=== PATIENT | female | born 1945 | race Caucasian/White ===

== ENCOUNTER 2016-02-26 09:03 | Emergency (ER) | payer OTHER ==
[2016-02-26 09:21] VITALS: BP 131/78; PULSE 73; RESP 20; TEMP 98.6; O2SAT 97
--- NOTE | 2016-02-26 09:57 | UCPHY ---
H & P Time Seen by Provider: 02/26/16 09:46 Patient Type: New HPI/ROS: This patient reports a new mole on her left biceps region that she noticed last night. She has no pain at the area but is concerned about potential melanoma because she had a family member who of melanoma. ROS: She has no somatic complaints at this time other than the new mole. 5 point ROS is otherwise negative Smoking Status: Never smoked Physical Exam: Physical Exam Vital signs are normal. General: No acute distress Eyes: Pupils equal and react to light. Extraocular motions are intact. Lungs: No respiratory distress. Cardiac: Brisk capillary refill is intact throughout. Skin: Patient has multiple hyper pigmented nevi to bilateral upper extremities the mole that she points out is approximately 8 mm in diameter round and brown pigmentation to the anterior left biceps. There are no fluctuant lesions, no raised lesions, no petechia or purpura. Neuro: Alert and oriented x3 with no sensorimotor deficits. Initial differential diagnosis: Benign nevi, new mole, early melanoma Constitutional: Initial Vital Signs Temperature (C) 37 C 02/26/16 09:18 Heart Rate 73 02/26/16 09:18 Respiratory Rate 20 02/26/16 09:18 Blood Pressure 131/78 H 02/26/16 09:18 O2 Sat (%) 97 02/26/16 09:18 O2 Delivery Mode Room Air Allergies/Adverse Reactions: Penicillins Allergy (Verified 02/26/16 09:17) NAUSEA Sulfa (Sulfonamide Antibiotics) Allergy (Verified 02/26/16 09:17) FATIGUE Home Medications: Medication Instructions Recorded Atorvastatin Calcium [Lipitor 10 10 mg PO DAILY 12/23/15 mg (*)] Hydrochlorothiazide [HCTZ (*)] 25 mg PO DAILY 12/23/15 Lisinopril [Zestril 30 mg] 30 mg PO DAILY 12/23/15 Multivitamins [Multivitamin (*)] 1 each PO DAILY 12/23/15 Omeprazole 20 mg PO DAILY 12/23/15 Piloc[place]ine HCl [Salagen 5mg (*)] 10 mg PO BID 12/23/15 Aspirin [Aspirin 81mg (*)] 81 mg PO DAILY #0 tab.chew 12/24/15 MDM/Departure - MDM ED Course/Re-evaluation: I encouraged the patient to have a close follow up with Dr. Naranjo-ed tech for further evaluation - Depart Disposition: Home, Routine, Self-Care Clinical Impression: Change in mole Condition: Good Instructions: Atypical Mole (ED) Additional Instructions: Diagnosis: Change in mole Plan: Call Dr. Naranjo-Dermatology to arrange follow-up appointment for further evaluation Referrals: Palma Cid MD [Primary Care Provider] - As per Instructions ANNY NARANJO [Medical Doctor] - As per Instructions - PQRS PQRS Measurement: 134: Depression screening and followup, PRIME MD-PHQ2 (12 years and older) Over the last 2 weeks, how often have you been bothered by any of the following problems? 1. Feeling down, depressed, or hopeless? 2. Little interest or pleasure in doing things? Patient answered no to both 1 and 2 130: Documentation of medications. Reviewed all patient medications, doses, route and frequency. 226: Do you smoke? [No.] 47: 65 and older: Advanced care planning. Patient designates surrogate decision maker as [Patient has advanced directive.] 51: 18 years old and older with diagnosis of COPD, spirometry performance. NA 52: 18 years old and older with COPD and symptoms of COPD or FEV1<60% predicted prescribed a B Agonist. NA
== END 2016-02-26 10:00 | disposition home or self-care (01) ==
LOC: CED 09:03
DX: R23.8 Other skin changes (principal)
CPT/HCPCS: G0463-PO

== ENCOUNTER → 2016-03-29 | Outpatient (CLI) | payer OTHER ==
--- NOTE | 2016-03-29 15:32 | DX ---
DEXA Bone Mineral Densitometry Clinical Indications: Postmenopausal, screening for osteoporosis Comparison: 09/29/2005 (outside exam) Technique: Bone Mineral Densitometry (BMD) by Dual Energy X-Ray Absorptiometry (DEXA) was performed utilizing the Lat49 scanner. The lumbar spine was evaluated in the AP projection. The bilat eral hips and forearm were evaluated in the AP projection. Vertebral fracture assessment was also pe rformed. AP Lumbar Spine: The L1, L2, L3 and L4 vertebral bodies were evaluated. BMD: 1.259 gm/cm2 T-score: 0.5 SD Z-score: 2.2 SD No significant change. AP Left Hip: Total BMD: 1.000 gm/cm2 T-score: -0.1 SD Z-score: 1.4 SD No significant change. AP Right Hip: Total BMD: 1.047 gm/cm2 T-score: 0.3 SD Z-score: 1.8 SD AP Left Forearm, 02/22: BMD: 0.898 gm/cm2 T-score: 0.3 SD Z-score: 2.1 SD Vertebral Fracture Assessment: No significant fracture deformity. Conclusion: Considering the lowest measured site, the patient is normal and at low risk for fracture. The ten year FRAX risk for any major osteoporotic fracture is 7.2% and for a hip fracture is 0.4%. Any bone loss in this patient is probably related to aging or estrogen deficiency. To prevent osteoporosis and to promote the patient's bone density, the following recommendations shou ld be considered: 1. Pursue a regular regimen of weightbearing and muscle strengthening exercises in order to reduce t he risk of falls and fractures (as tolerated by the patient's general medical condition). 2. Ensure that daily dietary calcium uptake is maximized. 3. Consider checking the serum vitamin D level. Ensure that intake of vitamin D is 800 IU per day (f or ages 71 and older). 4. Consider follow-up DEXA scan in 3-4 years to assess the rate of bone loss in this patient.
== END ==
LOC: FIMAGING 13:19
PROVIDERS: ATTEND Internal Medicine
DX: Z13.820 Encounter for screening for osteoporosis (principal); Z78.0 Asymptomatic menopausal state

== ENCOUNTER 2016-06-07 19:22 | Emergency (ER) | payer OTHER ==
--- NOTE | 2016-06-07 20:02 | CPEKG ---
Heart Rate: 106 RR Interval: 566 P-R Interval: 200 QRSD Interval: 88 QT Interval: 320 QTC Interval: 425 P [place]: 68 QRS [place]: 63 T Wave [place]: -62 EKG Severity - ABNORMAL ECG - EKG Impression: SINUS TACHYCARDIA EKG Impression: NONSPECIFIC REPOL ABNORMALITY, DIFFUSE LEADS Electronically Signed By: Nino Carrillo 08-Jun-2016 23:48:48
--- NOTE | 2016-06-07 20:04 | EDPHY ---
H & P HPI/ROS: CHIEF COMPLAINT: HISTORY OF PRESENT ILLNESS: The patient is a 70-year-old female presenting with cough, congestion, sore throat, and fever. The patient developed cough and congestion 3 days ago that has progressively worsened. She reports a productive cough with associated chest pain secondary to cough. Today she developed fever and chills. She was able to hydrate and eat today despite sore throat. She took Mucinex today. After the Mucinex she had 1 diarrheal stool today. No nausea, vomiting, or ear ache. The patient received an influenza vaccination this season. REVIEW OF SYSTEMS: A ten point review of systems was performed and is negative with the exception of the items mentioned in the HPI. Source: Patient - Medical/Surgical History Hx Asthma: No Hx Chronic Respiratory Disease: No Hx Diabetes: No Hx Cardiac Disease: No Hx Renal Disease: No Hx Cirrhosis: No Hx Alcoholism: No Hx HIV/AIDS: No Hx Splenectomy or Spleen Trauma: No Other PMH: HTN, Sjogrens, TIA, Hyperlipidemia. PSH: Shoulder surgery 2 years ago. - Social History Smoking Status: Never smoked Alcohol Use: None Additional Social History: Retired. Lives alone. - Physical Exam Exam: General Appearance: Alert. Vital signs reviewed. Eyes: Pupils equal and round, no conjunctival injection, no discharge. Anicteric. ENT, Mouth: Mucous membranes are moist, no oropharyngeal erythema or edema. Neck: No lymphadenopathy, supple. Respiratory: Lungs are clear to auscultation; no wheezes, rales, or rhonchi. Cardiovascular: Regular rate and rhythm; no murmur, rub, or gallop. Gastrointestinal: Abdomen is soft and nontender, no masses or organomegaly, bowel sounds normal. Skin: Warm and dry, no rashes on exposed skin, normal color. Back: Nontender to palpation over the thoracolumbar spine. No CVAT. Extremities: No lower extremity edema, no calf tenderness or swelling. Neurological: Alert and oriented. Moving all four extremities easily and equally. Psychiatric: Normal affect. Constitutional: Initial Vital Signs Temperature (C) 37.8 C 06/07/16 20:20 Heart Rate 104 H 06/07/16 20:20 Respiratory Rate 20 06/07/16 20:20 Blood Pressure 125/92 H 06/07/16 20:20 O2 Sat (%) 93 06/07/16 20:20 O2 Delivery Mode Room Air Allergies/Adverse Reactions: Penicillins Allergy (Verified 02/26/16 09:17) NAUSEA Sulfa (Sulfonamide Antibiotics) Allergy (Verified 02/26/16 09:17) FATIGUE Home Medications: Medication Instructions Recorded Atorvastatin Calcium [Lipitor 10 10 mg PO DAILY 12/23/15 mg (*)] Hydrochlorothiazide [HCTZ (*)] 25 mg PO DAILY 12/23/15 Lisinopril [Zestril 30 mg] 30 mg PO DAILY 12/23/15 Multivitamins [Multivitamin (*)] 1 each PO DAILY 12/23/15 Omeprazole 20 mg PO DAILY 12/23/15 Pil[place] HCl [Salagen 5mg (*)] 10 mg PO BID 12/23/15 Aspirin [Aspirin 81mg (*)] 81 mg PO DAILY #0 tab.chew 12/24/15 Hydrocodone/APAP 5/325 [[place] 1 - 2 tab PO Q4 PRN #10 tab 06/07/16 5/325 (RX)] Meloxicam 06/07/16 traMADol 06/07/16 Medical Decision Making - Diagnostics EKG Interpretation: Twelve lead EKG reviewed by me while patient in ED. Imaging Results: Two view CXR reviewed by me in PACS. Basilar opacities likely atalectasis, not infiltrate--reviewed radiologist's report. Imaging: I viewed and interpreted images myself ED Course/Re-evaluation: The patient presents with multiple cold-like symptoms including cough, congestion, sore throat, and fever. On exam she has oropharyngeal erythema, no exudates. Patient is afebrile here. Slight tachycardia. Chest x-ray was ordered. Plan for rapid strep and influenza test. An x-ray of chest was obtained. I viewed the images myself on the PACS system. No pneumonia. See the full radiology report. I do not appreciate an infiltrate and do not think she has pneumonia. Patient is positive for influenza B. Strep test is negative. She is comfortable returning home with instructions for symptomatic treatment. I do not recommend Tamiflu at this stage of her illness. She does not appear toxic and I do not feel that she needs hospitalization. Differential Diagnosis: I considered a differential diagnosis including but not limited to pneumonia, urinary tract infection, viral syndrome, and influenza. - Data Points Laboratory Results: Laboratory Results 06/07/16 20:02 06/07/16 20:02 Medications Given: Discontinued Medications Acetaminophen (Tylenol) 1,000 mg PO EDNOW ONE Stop: 06/07/16 20:19 Last Admin: 06/07/16 20:25 Dose: 1,000 mg Hydrocodone Bitart/Acetaminophen ([place] 5/325mg Prepack#6) 1 btl TAKEHOME EDNOW ONE Stop: 06/07/16 21:26 Last Admin: 06/07/16 21:51 Dose: 1 btl Sodium Chloride (Ns) 1,000 mls @ 0 mls/hr IV ONCE ONE PRN Reason: Wide Open Stop: 06/07/16 21:57 Last Admin: 06/07/16 20:30 Dose: 1,000 mls Departure - Departure Disposition: Home, Routine, Self-Care Clinical Impression: Influenza B Condition: Good Instructions: Hydrocodone/Acetaminophen (By mouth), Influenza (ED) Additional Instructions: Adult Pain & Fever Control: We recommend Acetaminophen (Tylenol) and Ibuprofen (Motrin,Advil) for pain and fever control. When fever is high or pain severe, both drugs can be used at the same time, but at different intervals. Please note the time differences. Your dose is: Acetaminophen 650mg every 4 to 6 hours Ibuprofen 600mg every 6 to 8 hours with food. Note: do not take Acetaminophen with Hydrocodone (Vicodin, Lortab) or Oycodone (Percocet). These medications also contain Acetaminophen. No more than 3000mg of Acetaminophen should be taken in 24 hours (for an adult). Drink plenty of fluids. Stay home until you have been without fever for 24 hours. Use the [place] for pain as needed. It contains hydrocodone, an opiate medication , and tylenol (325 mg). Followup with your primary care physician for a recheck of your symptoms in 1 week. Referrals: Palma Cid MD [Primary Care Provider] - As per Instructions Prescriptions: Hydrocodone/APAP 5/325 [[place] 5/325 (RX)] 1 - 2 tab PO Q4 PRN #10 tab PRN Reason: pain Report Scribed for: Kaylan Rose Report Scribed by: Angelic Brar Date of Report: 06/07/16 Time of Report: 20:37 Physician Review and Approval Statement: 06/07/16 20:04 Portions of this note were transcribed by the medical records specialist. I, Dr. Kaylan Rose, personally performed the history, physical exam, and medical decision- making; and confirmed the accuracy of the information in the transcribed note.
[2016-06-07 20:15] LABS: % IMMATURE GRANULYOCYTES 0.3 % (0.0-1.1); ABSOLUTE IMMATURE GRANULOCYTES 0.02 10^3/uL (0.00-0.10); ADD DIFF? NO; ADD MORPH? NO; ADD SCAN? NO; ATYPICAL LYMPHOCYTE FLAG 0 (0-99); FRAGMENT RBC FLAG 0 (0-99); HEMATOCRIT 43.3 % (38.0-47.0); HEMOGLOBIN 14.5 g/dL (12.6-16.3); LEFT SHIFT FLG 10 (0-99); LIPEMIA HEMOLYSIS FLAG 80 (0-99); MEAN CELL HEMOGLOBIN 29.2 pg (27.9-34.1); MEAN CELL HEMOGLOBIN CONCENTR. 33.5 g/dL (32.4-36.7); MEAN CELL VOLUME 87.3 fL (81.5-99.8); MEAN PLATELET VOLUME 9.6 fL (8.7-11.7); PLATELET CLUMPS FLAG 10 (0-99); PLATELET COUNT 239 10^3/uL (150-400); RED BLOOD CELL COUNT 4.96 10^6/uL (4.18-5.33); RED CELL DISTRIBUTION WIDTH 14.8 % (11.5-15.2)
[2016-06-07] MEDS ORDERED: ACETAMINOPHEN 500 MG TAB PO ONE (20:18)
[2016-06-07 20:44] LABS: ANION GAP 12 mEq/L (8-16); CALCIUM 9.9 mg/dL (8.5-10.4); CARBON DIOXIDE 21 mEq/l (22-31); CHLORIDE 100 mEq/L (97-110); CREATININE 0.9 mg/dL (0.6-1.0); GLOMERULAR FILTRATION RATE > 60; GLUCOSE 118 mg/dL (70-100); POTASSIUM 3.5 mEq/L (3.5-5.2); SODIUM 133 mEq/L (134-144)
[2016-06-07 20:56] LABS: TROPONIN I < 0.012 ng/mL (0-0.034)
[2016-06-07 21:12] VITALS: BP 137/88; PULSE 96; RESP 16; O2SAT 94
[2016-06-07] MEDS ORDERED: HYDROCOD/APAP 5/325 PREPACK#6 BTL TAKEHOME ONE (21:25)
[2016-06-07 21:50] VITALS: TEMP 99.1
[2016-06-07] MEDS ORDERED: NS 1,000 ML IV ONE (21:56)
== END 2016-06-07 21:49 | disposition home or self-care (01) ==
DX: J10.1 Influenza due to other identified influenza virus with other respiratory manifestations (principal); I10 Essential (primary) hypertension; Z79.82 Long term (current) use of aspirin

== ENCOUNTER → 2016-12-12 | Outpatient (CLI) | payer OTHER | LOC: FIMAGING 14:57 | PROVIDERS: ATTEND Internal Medicine | DX: Z12.31 Encounter for screening mammogram for malignant neoplasm of breast (principal); Z80.3 Family history of malignant neoplasm of breast | CPT/HCPCS: G0202 ==

== ENCOUNTER 2017-06-06 13:07 | Emergency (ER) | payer OTHER ==
[2017-06-06 13:15] VITALS: BP 112/81
--- NOTE | 2017-06-06 13:51 | EDPHY ---
HPI/HX/ROS/PE/MDM Narrative: CHIEF COMPLAINT: "I've got a cold," cough, fatigue HPI: The patient is a 71 y/o female complaining of a persistent unproductive cough and fatigue for the last week since visiting [place]. Her medical history includes hypertension, Sjogren's, and TIA. No history of respiratory disease. She denies associated fever, hemoptysis, myalgias, vomiting, abdominal pain, diarrhea. She plans to travel to [facility] this weekend and is primarily here to "rule out pneumonia." She is up-to-date on her influenza vaccination and has not been ill previously this flu season. REVIEW OF SYSTEMS: Aside from elements discussed in the HPI, a comprehensive 10-point review of systems was reviewed and is negative. PMH: 1. Hypertension 2. Sjogren's syndrome 3. TIA 4. Hyperlipidemia 5. Shoulder surgery Prior medical records reviewed including ED visit 06/07/16 for cough. SOCIAL HISTORY: Nonsmoker. Recently returned from [place] and planning to travel to [facility] this weekend. PHYSICAL EXAM: General:Patient is alert, in no acute distress. SpO2 93% on room air. ENT:Eyes are normal to inspection. ENT inspection normal. Neck: Normal inspection. Full range of motion. Respiratory:No respiratory distress. Breath sounds normal bilaterally. Occasional cough. Cardiovascular: Regular rate and rhythm. Strong peripheral pulses. Normal cap refill. Abdomen:The abdomen is nontender to palpation. There are no peritoneal signs. Back: Normal to inspection. No tenderness to palpation. Skin: Normal color. No rash. Warm and dry. Extremities: Normal appearance. Full range of motion. Neuro: Oriented x3. Normal motor function. Normal sensory function. ED Course: This is a 71 y/o female who presents with a 1-week history of persistent cough and fatigue after visiting [place] recently. She is coughing occasionally, but otherwise has an unremarkable exam. She is afebrile with an SpO2 of 93% on room air. She is here to "rule out pneumonia" and has declined further testing apart from a chest x-ray. Her chest x-ray does not show an infiltrate. She again declines swab or other investigation of symptoms and would like to be discharged home. Discussed standard cough care and follow up instructions. Return precautions discussed. She is happy with this plan. - Data Points Imaging: I viewed and interpreted images myself General Time Seen by Provider: 06/06/17 13:22 Initial Vital Signs: Initial Vital Signs Temperature (C) 36.8 C 06/06/17 13:13 Heart Rate 99 06/06/17 13:13 Respiratory Rate 18 06/06/17 13:13 Blood Pressure 112/81 H 06/06/17 13:13 O2 Sat (%) 93 06/06/17 13:13 O2 Delivery Mode Room Air Allergies/Adverse Reactions: Penicillins Allergy (Verified 02/26/16 09:17) NAUSEA Sulfa (Sulfonamide Antibiotics) Allergy (Verified 02/26/16 09:17) FATIGUE Home Medications: Medication Instructions Recorded Atorvastatin Calcium [Lipitor 10 10 mg PO DAILY 12/23/15 mg (*)] Hydrochlorothiazide [HCTZ (*)] 25 mg PO DAILY 12/23/15 Lisinopril [Zestril 30 mg] 30 mg PO DAILY 12/23/15 Multivitamins [Multivitamin (*)] 1 each PO DAILY 12/23/15 [place] HCl [[place]agen 5mg (*)] 10 mg PO BID 12/23/15 Aspirin [Aspirin 81mg (*)] 81 mg PO DAILY #0 tab.chew 12/24/15 Departure - Departure Disposition: Home, Routine, Self-Care Clinical Impression: Cough Condition: Good Instructions: Acute Cough (ED) Additional Instructions: 1. Cover your cough. Practice good hand hygiene and wash hands frequently while ill to help prevent spread of illness to others. 2. Use [id number] cold treatments as directed on the packaging as needed for symptoms. 3. Follow up with your primary care provider for unimproved symptoms over the next week. 4. Return to the ED for any worsening of condition. Referrals: Palma Cid MD [Primary Care Provider] - As per Instructions Report Scribed for: Junaid Acosta Report Scribed by: Mary Lees Date of Report: 06/06/17 Time of Report: 13:54 Physician Review and Approval Statement: Portions of this note were transcribed by an ED scribe. I personally performed the history, physical exam, and medical decision making; and confirm the accuracy of the information in the transcribed note.
== END 2017-06-06 14:12 | disposition home or self-care (01) ==
DX: R05 Cough (principal); I10 Essential (primary) hypertension; Z79.82 Long term (current) use of aspirin

== ENCOUNTER → 2017-12-14 | Outpatient (CLI) | payer OTHER | LOC: FIMAGING 10:47 | PROVIDERS: ATTEND Internal Medicine | DX: Z12.31 Encounter for screening mammogram for malignant neoplasm of breast (principal); Z80.3 Family history of malignant neoplasm of breast ==

== ENCOUNTER → 2018-08-01 | Outpatient (CLI) | payer OTHER | LOC: FIMAGING 13:53 ==

== ENCOUNTER 2018-08-16 05:53 | Inpatient (IN) | payer OTHER | END 2018-08-17 10:43 | disposition home health service (06) | LOC: F3N 05:53 ==